=== PATIENT | female | born 1995 | race American Indian/Alaskan Native ===

== ENCOUNTER 2021-03-05 18:04 | Emergency (ER) | payer SELFPAY ==
[2021-03-05 18:23] VITALS: BP 132/80
[2021-03-05] MEDS ORDERED: ACETAMINOPHEN 500 MG TAB PO ONE (18:35)
[2021-03-05] MEDS ORDERED: PHENAZOPYRIDINE 200 MG TAB PO ONE (18:35)
[2021-03-05 19:32] LABS: HCG Qualitative,Urine Negative (Negative)
[2021-03-05 19:38] LABS: Bilirubin,Urine NEG (Negative); Blood,Urine SM (Negative); Color,Urine Yellow (Yellow); Mucus,Urine FEW /HPF
[2021-03-05 19:45] LABS: WBC,Urine > 182.0 /HPF (0.0-6.0)
--- NOTE | 2021-03-05 19:54 | Emergency Department Report ---
ED Female HPI - General Chief complaint: Abdominal Pain Stated complaint: ABD PAIN/BLURRY EYE Source: patient Mode of arrival: Ambulatory Limitations: No Limitations - History of Present Illness Initial comments: Patient is a nulliparous 25-year-old -[place] female with no past medical history who presents to the ED with complaint of acute onset persistent dysuria, urinary frequency and urgency, low back pain, suprapubic pressure for the last 2 weeks, worse in the last 2 days. Patient states that she has had multiple hematuria episodes in the last 12 hours with worsening dysuria. Patient denies dizziness, syncope, fever, chills, nausea and vomiting, diarrhea, shortness of breath, traumatic injury, chest pain numbness and tingling or weakness of lower extremities bilaterally or vaginal discharge. MD Complaint: dysuria, pelvic pain (suprapubic pressure), other (urinary urgency and frequency) -: Sudden, week(s) (2) Location: suprapubic Radiation: non-radiating Severity: moderate Severity scale (0 -10): 6 Quality: sharp, aching Consistency: constant Improves with: none Worsens with: urination, movement Are you Now?: No Associated Symptoms: denies other symptoms, abdominal pain (suprapubic), dysuria, hematuria. denies: vaginal discharge, vaginal bleeding, fever/chills, headaches, loss of appetite, rash, seizure, shortness of breath, syncope, weakness, other - Related Data Sexually active: Yes : 0 Para: 0 A: 0 Previous Rx's Medication Instructions Recorded Last Taken Type Fluconazole [Diflucan TAB] 200 mg PO QDAY #1 tablet 03/05/21 Unknown Rx Ibuprofen [Motrin] 800 mg PO Q8HR PRN #30 tablet 03/05/21 Unknown Rx Ondansetron [Zofran Odt] 4 mg PO Q6HR PRN #15 tab.rapdis 03/05/21 Unknown Rx Sulfamethoxazole/Trimethoprim 1 each PO Q12H #20 tab 03/05/21 Unknown Rx [Bactrim DS TAB] Allergies Allergy/AdvReac Type Severity Reaction Status Date / Time No Known Allergies Allergy Unverified 03/05/21 18:15 ED Review of Systems ROS: Stated complaint: ABD PAIN/BLURRY EYE Other details as noted in HPI Constitutional: denies: chills, fever Eyes: denies: eye pain, eye discharge, vision change ENT: denies: ear pain, throat pain Respiratory: denies: cough, shortness of breath, wheezing Cardiovascular: denies: chest pain, palpitations Endocrine: no symptoms reported Gastrointestinal: abdominal pain (suprapubic pressure). denies: nausea, diarrhea Genitourinary: urgency, dysuria, frequency, hematuria. denies: discharge Musculoskeletal: back pain (low back pain). denies: joint swelling, arthralgia Skin: denies: rash, lesions Neurological: denies: headache, weakness, paresthesias Psychiatric: denies: anxiety, depression Hematological/Lymphatic: denies: easy bleeding, easy bruising ED Past Medical Hx - Medications Home Medications: Home Medications Medication Instructions Recorded Confirmed Last Taken Type Fluconazole [Diflucan TAB] 200 mg PO QDAY #1 tablet 03/05/21 Unknown Rx Ibuprofen [Motrin] 800 mg PO Q8HR PRN #30 tablet 03/05/21 Unknown Rx Ondansetron [Zofran Odt] 4 mg PO Q6HR PRN #15 tab.rapdis 03/05/21 Unknown Rx Sulfamethoxazole/Trimethoprim 1 each PO Q12H #20 tab 03/05/21 Unknown Rx [Bactrim DS TAB] ED Physical Exam - General Limitations: No Limitations General appearance: alert, in no apparent distress - Head Head exam: Present: atraumatic, normocephalic, normal inspection - Eye Eye exam: Present: normal appearance, PERRL, EOMI Pupils: Present: normal accommodation - ENT ENT exam: Present: normal exam, normal orophraynx, mucous membranes moist, TM's normal bilaterally, normal external ear exam - Neck Neck exam: Present: normal inspection, full ROM. Absent: tenderness - Respiratory Respiratory exam: Present: normal lung sounds bilaterally. Absent: respiratory distress, wheezes, rales, rhonchi, chest wall tenderness, accessory muscle use, decreased breath sounds, prolonged expiratory - Cardiovascular Cardiovascular Exam: Present: regular rate, normal rhythm, normal heart sounds. Absent: systolic murmur, diastolic murmur, rubs, gallop - GI/Abdominal GI/Abdominal exam: Present: soft, normal bowel sounds. Absent: tenderness, guarding, rebound, hyperactive bowel sounds, hypoactive bowel sounds, mass, pulsatile mass - Extremities Exam Extremities exam: Present: normal inspection, full ROM, normal capillary refill. Absent: tenderness - Back Exam Back exam: Present: normal inspection, full ROM. Absent: tenderness, CVA tenderness (R), muscle spasm, paraspinal tenderness, vertebral tenderness - Neurological Exam Neurological exam: Present: alert, oriented X3, CN II-XII intact, normal gait, reflexes normal - Psychiatric Psychiatric exam: Present: normal affect, normal mood - Skin Skin exam: Present: warm, dry, intact, normal color. Absent: rash ED Course Vital Signs 03/05/21 18:21 Temperature 98.8 F Pulse Rate 68 Respiratory 20 Rate Blood Pressure 132/80 [Right] O2 Sat by Pulse 99 Oximetry ED Medical Decision Making - Medical Decision Making This is a nulliparous 25-year-old -British female with no past medical history who presents to the ED with complaint of acute onset persistent dysuria, urinary frequency and urgency, low back pain, suprapubic pressure for the last 2 weeks, worse in the last 2 days. Patient states that she has had multiple hematuria episodes in the last 12 hours with worsening dysuria. In the ED, patient is alert and oriented x3 and is not in any distress. Patient is hemodynamically stable. Urinalysis showed significant urinary tract infection. Patient was therefore discharged home on medications including antibiotics and advised to drink plenty of fluids and follow-up with her primary care physician in 7 to 10 days for reevaluation. Patient advised return to the ED immediately if symptoms get worse. - Differential Diagnosis UTI; kidney stones; ; STD; ovarian cyst; Critical care attestation.: If time is entered above; I have spent that time in minutes in the direct care of this critically ill patient, excluding procedure time. ED Disposition Clinical Impression: Acute urinary tract infection, Dysuria Disposition: HOME / SELF CARE / HOMELESS Is pt being admited?: No Does the pt Need Aspirin: No Instructions: Urinary Tract Infection, Adult, [id number], Dysuria, Abdominal Pain (ED) Additional Instructions: Your test results showed significant urinary tract infection. Therefore take medication with food, drink plenty of fluids and follow-up with your primary care physician in 7 to 10 days for reevaluation. Return to the ED immediately if symptoms get worse. Prescriptions: Sulfamethoxazole/Trimethoprim [Bactrim DS TAB] 1 each PO Q12H #20 tab Fluconazole [Diflucan TAB] 200 mg PO QDAY #1 tablet Ibuprofen [Motrin] 800 mg PO Q8HR PRN #30 tablet PRN Reason: Pain , Severe (7-10) Ondansetron [Zofran Odt] 4 mg PO Q6HR PRN #15 tab.rapdis PRN Reason: Nausea Referrals: [facility] [Provider Group] - 7-10 days Time of Disposition: 19:56 Print Language: EQUATOR[employer] [place]INE[place]
== END 2021-03-05 20:54 | disposition home or self-care (01) ==
LOC: ED 18:04
DX: N39.0 Urinary tract infection, site not specified (principal); R30.0 Dysuria
CPT/HCPCS: 81001; 81025; 99283